=== PATIENT | female | born 1950 | race Caucasian/White ===

== ENCOUNTER → 2019-06-23 | Outpatient (CLI) | payer MEDICARE, BC ==
[~2019-06-23] VITALS: Ht 165.1 cm; Wt 118.6 kg
[~2019-06-23] MED LIST: COZAAR 50MG50 MG/TAB PO; MAXZIDE-25MG TA1 TAB PO; PERCOCET 325 MG1 TA3 PO; PROAIR HFA0.09 MG/AC IH; PROCARDIA XL 6060 MG PO; SYNTHROID0.175 MG PO
[2019-06-23 10:34] VITALS: BP 179/82; PULSE 101
[2019-06-23 11:36] VITALS: BP 161/77; PULSE 81
[2019-06-23 11:45] VITALS: BP 178/77; PULSE 87
[2019-06-23 11:46] VITALS: BP 179/82; PULSE 84
== END ==
LOC: COL.CARD 10:03
DX: R07.9 Chest pain, unspecified (principal)
CPT/HCPCS: A9500; J2785

== ENCOUNTER → 2019-07-22 | Outpatient (CLI) | payer MEDICARE, BC | LOC: COL.VAS 13:02 | DX: Z13.6 Encounter for screening for cardiovascular disorders (principal); M79.89 Other specified soft tissue disorders ==

== ENCOUNTER → 2019-12-11 | Outpatient (CLI) | payer MEDICARE, BC | LOC: ZCOL.LAB 16:51 | DX: Z03.818 Encounter for observation for suspected exposure to other biological agents ruled out (principal); Z20.828 Contact with and (suspected) exposure to other viral communicable diseases ==

== ENCOUNTER → 2020-08-11 | Outpatient (CLI) | payer MEDICARE, BC | LOC: COL.RAD 06:44 | DX: I25.10 Atherosclerotic heart disease of native coronary artery without angina pectoris (principal); I28.8 Other diseases of pulmonary vessels; I27.21 Secondary pulmonary arterial hypertension; K80.20 Calculus of gallbladder without cholecystitis without obstruction ==

== ENCOUNTER → 2020-08-23 | Outpatient (CLI) | payer MEDICARE, BC | LOC: COL.VAS 13:43 | DX: I08.1 Rheumatic disorders of both mitral and tricuspid valves (principal) ==

== ENCOUNTER → 2021-11-16 | Outpatient (CLI) | payer MEDICARE, BC | LOC: COL.RAD 08:38 | DX: S06.0X1A Concussion with loss of consciousness of 30 minutes or less, initial encounter (principal); G31.9 Degenerative disease of nervous system, unspecified; X58.XXXA Exposure to other specified factors, initial encounter ==

== ENCOUNTER → 2023-06-25 | Outpatient (CLI) | payer MEDICARE, BC ==
[~2023-06-25] MED LIST changes: +NORCO 325 MG-51 TAB PO
== END ==
LOC: MHCPAIN 10:50
DX: M48.062 Spinal stenosis, lumbar region with neurogenic claudication (principal); M41.86 Other forms of scoliosis, lumbar region; I10 Essential (primary) hypertension; N18.4 Chronic kidney disease, stage 4 (severe)
CPT/HCPCS: G0463